=== PATIENT | male | born 1950 | race Caucasian/White ===

== ENCOUNTER → 2022-12-13 09:44 | Outpatient (BNVA) | payer MEDICARE, SELFPAY | PROVIDERS: Referring Provider Nurse Practitioner Family; Visit Provider Nurse Practitioner Family | DX: L82.1 Other seborrheic keratosis (principal); L82.0 Inflamed seborrheic keratosis; L81.4 Other melanin hyperpigmentation; L57.8 Other skin changes due to chronic exposure to nonionizing radiation; D22.5 Melanocytic nevi of trunk; Z71.89 Other specified counseling; L85.3 Xerosis cutis; Z72.0 Tobacco use | CPT/HCPCS: 11102; 17110; 99203 ==

== ENCOUNTER 2025-03-10 06:48 | Outpatient (CLI) | payer MEDICARE, SELFPAY ==
--- NOTE | 2025-03-10 07:00 | USCV_ITS ---
Giovanni Esteban Age: 74 Gender: M : 1950 Exam Date: 03/10/2025 07:05 Ordering Phys: Luci Johnson NP Technologist: Exam Location[place] [facility] [place]: cp sob hx mi BP: 130 / 75 HR: 72 Rhythm: Sinus Technical Quality: Adequate MEASUREMENTS (Male / Female) Normal Values 2D ECHO LV Diastolic Diameter PLAX 4.8 cm 4.2 - 5.9 / 3.9 - 5.3 cm IVS Diastolic Thickness 1.1 cm 0.6 - 1.0 / 0.6 - 0.9 cm IVS Systolic Thickness 2.0 cm LVPW Diastolic Thickness 1.1 cm 0.6 - 1.0 / 0.6 - 0.9 cm LVPW Systolic Thickness 1.5 cm LVOT Diameter 2.0 cm LV Ejection Fraction 2D Teich 70.0 % LV Ejection Fraction MOD 4C 64.8 % LV Ejection Fraction MOD 2C 70.4 % LV Ejection Fraction 2C AL 70.7 % LA Diameter 3.0 cm RA Systolic Volume 4C AL 37.9 ml RA Systolic Volume 4C MOD 34.9 ml Aorta at Sinotubular Diameter 3.0 cm IVC Diameter 2.0 cm M-MODE LA Ao Ratio MM 1.3 AV Cusp Separation MM 2.4 cm DOPPLER AV Peak Velocity 110.0 cm/s LVOT Peak Velocity 90.0 cm/s AV Area Cont Eq vti 2.8 cm squared AV Area Cont Eq pk 2.6 cm squared MV Peak Velocity 109.0 cm/s MV Area PHT 4.1 cm squared Mitral E to A Ratio 0.7 TV Peak Velocity 181.5 cm/s TR Peak Velocity 205.0 cm/s TR Peak Gradient 16.8 mmHg TV Peak E Velocity 74.0 cm/s PV Peak Velocity 98.0 cm/s FINDINGS Left Ventricle Normal left ventricular size and systolic function, EF 64% . Mild left ventricular hypertrophy. Normal diastolic function. Right Ventricle Normal right ventricular size and systolic function. Normal right ventricular systolic pressure. Right Atrium Normal right atrial size. Left Atrium Normal left atrial size. Mitral Valve Structurally normal mitral valve. No mitral valve stenosis. No mitral valve regurgitation. Aortic Valve No aortic valve stenosis. No aortic valve regurgitation. Tricuspid Valve Trace tricuspid valve regurgitation. Pulmonic Valve No pulmonary valve stenosis. No pulmonary valve regurgitation. Pericardium No pericardial effusion. Aorta Normal aorta size at the level of the sinus of valsalva. Proximal ascending aorta not well visualized. IVC Normal inferior vena cava. CONCLUSIONS 1. Normal biventricular function. LV EF 64%. 2. Mild LVH 3. No significant valvular abnormalities Kameron Foy MD, FACC (Electronically Signed) Final Date: 10 March 2025 11:44 S
== END 2025-03-10 06:49 | disposition home or self-care (01) ==
LOC: RAD 06:50
PROVIDERS: PCP Nurse Practitioner Family; Visit Provider Nurse Practitioner Family
DX: I51.7 Cardiomegaly (principal); I36.1 Nonrheumatic tricuspid (valve) insufficiency
CPT/HCPCS: 93306

== ENCOUNTER 2025-03-11 09:31 | Outpatient (CLI) | payer MEDICARE, SELFPAY ==
--- NOTE | 2025-03-11 09:40 | US_ITS ---
WS: [id number] ULTRASOUND SOFT TISSUES bilateral inguinal canals. HISTORY: SWOLLEN LYMPH NODES COMPARISON: None available. TECHNIQUE: 2-D and color Doppler imaging is submitted. Abnormal lymph nodes bilaterally along the inguinal canals. Lymph nodes are enlarged and heterogeneous. There is diffuse cortical thickening with decreased echogenicity. Central fatty hilum is noted. Increased vascularity within some of these lymph nodes. Largest lymph nodes are measuring approximately 3.5 x 3.1 x 1.4 cm. US/US soft tissue/extremity [id number] IMPRESSION: Bilateral inguinal lymphadenopathy. Neoplastic versus reactive. Recommend follo w-up CT abdomen/pelvis to look for additional adenopathy.
--- NOTE | 2025-03-11 09:42 | US_ITS ---
WS: [id number] ULTRASOUND SOFT TISSUES RIGHT cervical chain. HISTORY: SWOLLEN LYMPH NODES COMPARISON: None available. TECHNIQUE: 2-D and color Doppler imaging is submitted. Numerous abnormal RIGHT cervical chain lymph nodes are identified. These lymph nodes are enlarged and heterogeneous with increased vascularity. Cortical thickening with mild loss of the normal fatty hilum. Largest lymph nodes measures approximately 2.1 x 0.9 x 0.8 cm. US/US soft tissue head neck [id number] IMPRESSION: RIGHT cervical chain lymphadenopathy. Recommend follow-up neck CT and chest CT with IV contrast. These may be reactive or neoplastic lymph nodes. Consider lym phoma.
== END 2025-03-11 09:32 | disposition home or self-care (01) ==
LOC: RAD 09:34
PROVIDERS: PCP Nurse Practitioner Family; Visit Provider Nurse Practitioner Family
DX: R59.9 Enlarged lymph nodes, unspecified (principal); R63.4 Abnormal weight loss; R59.0 Localized enlarged lymph nodes
CPT/HCPCS: 76536; 76882